=== PATIENT | male | born 1975 | race African-American/Black ===

== ENCOUNTER → 2018-12-04 | Outpatient (CLI) | payer OTHER ==
--- NOTE | 2018-12-06 14:06 | PATHOLOGY ---
[facility] Accession Number: [id number] . 01 Material submitted: . foot - LESION LEFT FOOT. Modifiers: left . 01 Clinical history: . Possible verruca . 02 Diagnosis: Skin, left foot lesion: - Verruca (Myremecia). . (JPM:stefan; 12/06/2018) QMS 12/06/2018 1358 Local . 02 Electronically signed: . Adama Santos MD, Pathologist NPI- [id number] . 01 Gross description: . The specimen is received in formalin, labeled "Benny Resendiz, L foot" and consists of 2 pink-dunbar skin fragments measuring 0.4 x 0.3 x 0.1 cm and 0.3 x 0.3 x 0.3 cm. They are inked and submitted intact in A1. (SDY; 12/05/2018) SYU/SYU 12/06/2018 0945 Local . 02 Pathologist provided ICD-10: B07.0 . 02 CPT . 115522 Specimen Comment: A courtesy copy of this report has been sent to Specimen Comment: [phone]. Specimen Comment: Report sent to Performed at: 01 [facility] [address], [place], [place] [id number] MD Reilly Read MD Phone: [phone] Performed at: 02 [facility] [address], [place] [id number] MD Adama Santos MD Phone: [phone]
== END | disposition home or self-care (01) ==
LOC: SPEC 17:00
PROVIDERS: ATTEND Podiatrist Foot & Ankle Surgery
DX: B07.0 Plantar wart (principal)
CPT/HCPCS: 88305